=== PATIENT | male | born 1980 | race Two or more races ===

== ENCOUNTER 2023-05-13 04:25 | Inpatient (IN) | payer OTHER ==
[2023-05-13] VITALS (23 sets, daily range): BP systolic 103–151; BP diastolic 49–95
[~2023-05-13] VITALS: Ht 185.4 cm; Wt 119.8 kg
[2023-05-13] MEDS ORDERED: LIDOCAINE 50MG/5ML INJ 5ML SYRINGE IV ONE (04:45)
[2023-05-13] MEDS ORDERED: HEPARIN SODIUM (PORCINE) 5000 UNITS/ML 1ML VIAL IV ONE (04:45)
[2023-05-13] MEDS ORDERED: LIDOCAINE HCL 100 MG/5ML (2%) SYRG INJ IV ONE (04:47)
[2023-05-13 04:56] LABS: Hematocrit 47.9 % (41.0-53.0); Hemoglobin 16.5 g/dL (13.5-17.5); Mean Corpuscular Hemoglobin 30.3 pg (28.0-32.0); Mean Corpuscular Hgb Conc. 34.5 g/dL (32.0-36.0); Mean Corpuscular Volume 87.6 fL (80.0-100.0); Red Blood Cells 5.46 10^6/uL (4.5-5.90); Red Cell Distribution Width 12.8 % (11.8-14.3); White Blood Cell 14.2 10^3/uL (4.4-10.8)
[2023-05-13 05:00] LABS: Basophils % (manual) 0 (0.0-2.0); Blast Cells 0; Eosinophils % (manual) 0 (0-7); Metamyelocytes % 0; Myelocytes % 0; Promyelocytes % 0
[2023-05-13] MEDS ORDERED: ASPirin 81 mg TAB PO ONE (05:00)
[2023-05-13 05:11] LABS: INR 1.07 (0.9-1.15); Partial Thromboplastin Time 25.3 SEC (24.5-34.5)
[2023-05-13] MEDS ORDERED: LIDOCAINE 2%HCL (LOCAL ANESTH.) INJ 20ML MDV ONE (05:13)
[2023-05-13] MEDS ORDERED: MIDAZOLAM HCL 2MG/2ML 2ml VIAL (1mg/ml) ONE (05:13)
[2023-05-13] MEDS ORDERED: VERAPAMIL 2.5MG/ML INJ 2ML VIAL IV ONE (05:13)
[2023-05-13] MEDS ORDERED: fentaNYL CITRATE 100 MCG/2 ML VL ONE (05:13)
[2023-05-13 05:15] LABS: Albumin 3.9 g/dL (3.4-5.0); Calcium 9.1 mg/dL (8.5-10.1); Magnesium 2.2 mg/dL (1.6-2.6)
[2023-05-13 05:18] LABS: BUN/Creatinine Ratio 14.4 (10.0-20.0); Bilirubin, Total 0.7 mg/dL (0.2-1.0); Total Protein 8.5 g/dL (6.4-8.2)
[2023-05-13 05:25] LABS: Potassium 2.8 mmol/L (3.5-5.1)
[2023-05-13] MEDS ORDERED: ANGIOMAX 250 MG VIAL IV ONE ×2 (05:30→05:37)
[2023-05-13] MEDS ORDERED: SODIUM CHL 0.9% 0 ML ONE (05:30)
[2023-05-13 05:31] LABS: Band Neutrophils % (manual) 3; Lymphocytes % (manual) 56 (10.0-50.0); Monocytes % (manual) 6 (0-12); Reactive Lymphocytes 2
[2023-05-13] MEDS ORDERED: IODIXANOL 320MG/ML 100ML BTL IV ONE ×2 (05:35→05:47)
[2023-05-13] MEDS ORDERED: SODIUM CHL 0.9% 50 ML ONE (05:37)
[2023-05-13] MEDS ORDERED: ATROPINE SULF 1 MG/10ml SYR ONE (05:37)
[2023-05-13] MEDS ORDERED: EPTIFIBATIDE INJ (2MG/ML) 10ML VIAL IV ONE (05:45)
[2023-05-13] MEDS ORDERED: METOPROLOL TARTRATE 1MG/1ML-5ML VIAL IV ONE (05:52)
[2023-05-13] MEDS ORDERED: TICAGRELOR 90 MG TAB ONE (05:52)
[2023-05-13] MEDS ORDERED: POTASSIUM CHL 20 Meq TABLET PO ONE (06:15)
[2023-05-13] MEDS ORDERED: MORPHINE SULFATE INJ 2 MG/ml SYRG IV PRN (06:15)
[2023-05-13] MEDS ORDERED: MAGNESIUM SULFATE 1GM/100ML 100 ML IV ONE (06:15)
[2023-05-13] MEDS ORDERED: NITROGLYCERIN 0.4 MG SL TAB SL PRN (06:15)
[2023-05-13] MEDS ORDERED: SPIRONOLACTONE 25 MG TAB PO ONE (06:15)
[2023-05-13] MEDS: TICAGRELOR 90 MG TAB PO SCH ×2 (09:50→21:12)
[2023-05-13] MEDS: ATORVASTATIN 20 MG TAB PO SCH (09:50)
[2023-05-13] MEDS: CARVEDILOL 3.125 MG TAB PO SCH ×2 (09:51→21:12)
[2023-05-13] MEDS: ENALAPRIL MALEATE 2.5 MG TAB PO SCH ×2 (10:00→21:11)
[2023-05-13 13:33] LABS: Calcium 9.3 mg/dL (8.5-10.1); Potassium 4.2 mmol/L (3.5-5.1)
[2023-05-13 13:37] LABS: Magnesium 2.4 mg/dL (1.6-2.6)
[2023-05-13] MEDS ORDERED: ONDANSETRON HCL 4 MG/2 ML VIAL IV PRN (14:00)
[2023-05-13] MEDS ORDERED: KETOROLAC TROMETH 30 MG/ML 1ML VIAL IV ONE (14:00)
[2023-05-13 15:19] LABS: Urine Bacteria NONE SEEN /hpf (None Seen); Urine Blood Negative /uL (Negative); Urine Specific Gravity 1.031 (1.001-1.035); Urine WBC <1 /hpf (0 - 3)
[2023-05-14] VITALS (15 sets, daily range): BP systolic 92–154; BP diastolic 48–78
[2023-05-14 05:07] LABS: Basophils # (auto) 0 10 ^3/uL (0-0.2); Basophils % (auto) 0.1 % (0.0-2.0); Eosinophils # (auto) 0.1 10 ^3/uL (0-0.8); Eosinophils % (auto) 0.9 % (0.0-7.0); Hematocrit 45.4 % (41.0-53.0); Lymphocytes # (auto) 3.8 10 ^3/uL (0.4-5.4); Lymphocytes % (auto) 35.7 % (10.0-50.0); Mean Corpuscular Hemoglobin 30.5 pg (28.0-32.0); Mean Corpuscular Hgb Conc. 35.2 g/dL (32.0-36.0); Mean Corpuscular Volume 86.7 fL (80.0-100.0); Monocytes # (auto) 0.8 10 ^3/uL (0-1.3); Neutrophils # (auto) 5.8 10 ^3/uL (1.6-8.6); Neutrophils % (auto) 55.3 % (37.0-80.0); Red Blood Cells 5.24 10^6/uL (4.5-5.90); Red Cell Distribution Width 12.9 % (11.8-14.3); White Blood Cell 10.5 10^3/uL (4.4-10.8)
[2023-05-14 05:11] LABS: Calcium 8.5 mg/dL (8.5-10.1); Magnesium 2.2 mg/dL (1.6-2.6); Potassium 3.5 mmol/L (3.5-5.1)
[2023-05-14 05:14] LABS: BUN/Creatinine Ratio 13.6 (10.0-20.0)
[2023-05-14] MEDS ORDERED: DEXTROSE (50%) 50ML SYRG IV PRN (10:00)
[2023-05-14] MEDS: ATORVASTATIN 20 MG TAB PO SCH (10:34)
[2023-05-14] MEDS: TICAGRELOR 90 MG TAB PO SCH ×2 (10:35→21:42)
[2023-05-14] MEDS: ENALAPRIL MALEATE 2.5 MG TAB PO SCH ×2 (10:35→21:43)
[2023-05-14] MEDS: CARVEDILOL 3.125 MG TAB PO SCH ×2 (10:35→21:42)
[2023-05-14] MEDS: ASPirin 81 mg TAB PO SCH (10:35)
[2023-05-14] MEDS: ACCU-CHEK COMFORT CURVE STRIP VI SCH ×2 (12:00→17:44)
[2023-05-14] MEDS: InsuLIN REG 1unit/0.01ml Soln (100units/ml) SC SCH ×2 (12:42→18:27)
[2023-05-15] VITALS (7 sets, daily range): BP systolic 116–137; BP diastolic 49–89
[2023-05-15] MEDS: ACCU-CHEK COMFORT CURVE STRIP VI SCH ×5 (00:20→23:02)
[2023-05-15] MEDS: InsuLIN REG 1unit/0.01ml Soln (100units/ml) SC SCH ×5 (00:21→23:02)
[2023-05-15] MEDS: TICAGRELOR 90 MG TAB PO SCH ×2 (09:31→21:23)
[2023-05-15] MEDS: ATORVASTATIN 20 MG TAB PO SCH (09:31)
[2023-05-15] MEDS: ASPirin 81 mg TAB PO SCH (09:31)
[2023-05-15] MEDS: CARVEDILOL 3.125 MG TAB PO SCH ×2 (09:32→21:22)
[2023-05-15] MEDS: ENALAPRIL MALEATE 2.5 MG TAB PO SCH ×2 (09:32→21:23)
[2023-05-15] MEDS ORDERED: INSUINJ37 SC ×2 (12:13)
[2023-05-15] MEDS ORDERED: CAR3125T PO ×2 (12:13)
[2023-05-15] MEDS ORDERED: INSU100I51 SC ×2 (12:13)
[2023-05-15] MEDS ORDERED: CARV3.1240 PO ×2 (12:13)
[2023-05-15] MEDS ORDERED: TICA90TA PO ×2 (12:13)
[2023-05-15] MEDS ORDERED: ENAL5TAB22 PO ×2 (12:13)
[2023-05-15] MEDS ORDERED: ASPI-325 PO ×2 (12:13)
[2023-05-15] MEDS: INSULIN LANTUS (GLARGINE) 1 /0.01ml (100units/ml) SC SCH (23:12)
[2023-05-16 04:54] VITALS: BP 130/76
[2023-05-16] MEDS: ACCU-CHEK COMFORT CURVE STRIP VI SCH ×2 (06:09→12:30)
[2023-05-16] MEDS: INSULIN LANTUS (GLARGINE) 1 /0.01ml (100units/ml) SC SCH (06:10)
[2023-05-16] MEDS: InsuLIN REG 1unit/0.01ml Soln (100units/ml) SC SCH ×2 (06:11→12:33)
[2023-05-16] MEDS: TICAGRELOR 90 MG TAB PO SCH (08:48)
[2023-05-16] MEDS: ASPirin 81 mg TAB PO SCH (08:49)
[2023-05-16] MEDS: ATORVASTATIN 20 MG TAB PO SCH (08:50)
[2023-05-16] MEDS: ENALAPRIL MALEATE 2.5 MG TAB PO SCH (08:50)
[2023-05-16] MEDS: CARVEDILOL 3.125 MG TAB PO SCH (08:51)
[2023-05-16 09:00] VITALS: BP 121/77
[2023-05-16 11:16] VITALS: BP 121/77
[2023-05-16] MEDS ORDERED: INSLANTI SC (11:47)
[2023-05-16] MEDS ORDERED: ASPI1TAB20 PO (11:47)
[2023-05-16] MEDS ORDERED: TICA90TA PO (11:47)
[2023-05-16] MEDS ORDERED: CAR3125T PO (11:47)
[2023-05-16] MEDS ORDERED: ENAL5TAB22 PO (11:47)
[2023-05-16] MEDS ORDERED: ATOR-47 PO (11:47)
[2023-05-16] MEDS ORDERED: INSU100I49 SC (11:47)
[2023-05-16 13:00] VITALS: BP 134/87
== END 2023-05-16 16:03 | disposition home or self-care (01) | DRG 270 ==
LOC: ER 04:25 → TELE 06:11 → DOU IN ICU 07:40 → TELE-WESTW 05-15 12:04
PROVIDERS: ADMIT Internal Medicine; ATTEND Internal Medicine
PROC: 027034Z Dilation of Coronary Artery, One Artery with Drug-eluting Intraluminal Device, Percutaneous Approach (ICD-10-PCS; principal; 2023-05-13)
PROC: X2CY3T7 Extirpation of Matter from Great Vessel using Computer-aided Mechanical Aspiration, Percutaneous Approach, New Technology Group 7 (ICD-10-PCS; 2023-05-13)
PROC: 3E073PZ Introduction of Platelet Inhibitor into Coronary Artery, Percutaneous Approach (ICD-10-PCS; 2023-05-13)
PROC: 4A023N7 Measurement of Cardiac Sampling and Pressure, Left Heart, Percutaneous Approach (ICD-10-PCS; 2023-05-13)
PROC: B211YZZ Fluoroscopy of Multiple Coronary Arteries using Other Contrast (ICD-10-PCS; 2023-05-13)
PROC: B215YZZ Fluoroscopy of Left Heart using Other Contrast (ICD-10-PCS; 2023-05-13)
DX: I21.09 ST elevation (STEMI) myocardial infarction involving other coronary artery of anterior wall (principal); I50.41 Acute combined systolic (congestive) and diastolic (congestive) heart failure; I47.20 Ventricular tachycardia, unspecified; I11.0 Hypertensive heart disease with heart failure; E87.6 Hypokalemia; E66.01 Morbid (severe) obesity due to excess calories; E78.5 Hyperlipidemia, unspecified; I25.10 Atherosclerotic heart disease of native coronary artery without angina pectoris; Z68.34 Body mass index [BMI] 34.0-34.9, adult; Z79.82 Long term (current) use of aspirin; Z79.899 Other long term (current) drug therapy; E11.9 Type 2 diabetes mellitus without complications
CPT/HCPCS: 36415; 37187; 71045; 76942; 80048; 80053; 80061; 81001; 82962; 83036; 83735; 83880; 84484; 85007; 85025; 85027; 85610; 85730; 87081; 92928; 93005; 93306; 93458; 96374; 96375; 99152; 99153; 99291; G0378; J1815; J1885; J2250; Q9967

== ENCOUNTER 2023-05-19 00:31 | Inpatient (IN) | payer OTHER ==
[~2023-05-19] VITALS: Ht 185.4 cm; Wt 125.0 kg
[~2023-05-19 00:31] MED LIST: ASPI1TAB20 PO; ATOR-47 PO; CAR3125T PO; ENAL5TAB22 PO; INSLANTI SC; INSU100I49 SC; TICA90TA PO
[2023-05-19 01:01] LABS: Basophils # (auto) 0.1 10 ^3/uL (0-0.2); Basophils % (auto) 0.5 % (0.0-2.0); Eosinophils # (auto) 0.2 10 ^3/uL (0-0.8); Eosinophils % (auto) 1.7 % (0.0-7.0); Hematocrit 45.7 % (41.0-53.0); Hemoglobin 15.5 g/dL (13.5-17.5); Lymphocytes # (auto) 5.6 10 ^3/uL (0.4-5.4); Mean Corpuscular Hemoglobin 29.8 pg (28.0-32.0); Mean Corpuscular Volume 87.7 fL (80.0-100.0); Monocytes # (auto) 0.9 10 ^3/uL (0-1.3); Monocytes % (auto) 7.7 % (0.0-12.0); Neutrophils # (auto) 4.7 10 ^3/uL (1.6-8.6); Neutrophils % (auto) 41.1 % (37.0-80.0); Nucleated Red Blood Cells % 0.1 %; Red Blood Cells 5.21 10^6/uL (4.5-5.90); Red Cell Distribution Width 12.8 % (11.8-14.3); White Blood Cell 11.4 10^3/uL (4.4-10.8)
[2023-05-19 01:19] LABS: Albumin 4.1 g/dL (3.4-5.0); BUN/Creatinine Ratio 17.2 (10.0-20.0); Calcium 8.6 mg/dL (8.5-10.1); Magnesium 2.4 mg/dL (1.6-2.6); Potassium 3.7 mmol/L (3.5-5.1)
[2023-05-19 01:21] LABS: Bilirubin, Total 0.5 mg/dL (0.2-1.0); Total Protein 8.4 g/dL (6.4-8.2)
[2023-05-19] MEDS ORDERED: ENOXAPARIN SOD 100 MG/1 ML SYRINGE SC ONE (02:15)
[2023-05-19] MEDS ORDERED: ONDANSETRON HCL 4 MG/2 ML VIAL IV PRN (06:00)
[2023-05-19] MEDS ORDERED: DEXTROSE (50%) 50ML SYRG IV PRN (06:00)
[2023-05-19] MEDS ORDERED: MORPHINE SULFATE INJ 2 MG/ml SYRG IV PRN (06:00)
[2023-05-19] MEDS ORDERED: NITROGLYCERIN 0.4 MG SL TAB SL PRN (06:00)
[2023-05-19] MEDS: ACCU-CHEK COMFORT CURVE STRIP VI SCH ×2 (06:39→12:07)
[2023-05-19] MEDS: InsuLIN REG 1unit/0.01ml Soln (100units/ml) SC SCH ×2 (06:45→12:07)
[2023-05-19] MEDS ORDERED: CARVEDILOL 3.125 MG TAB PO SCH (10:00)
[2023-05-19] MEDS ORDERED: PANTOPRAZOLE 40 MG TAB PO SCH (10:00)
[2023-05-19] MEDS ORDERED: TICAGRELOR 90 MG TAB PO SCH (10:00)
[2023-05-19] MEDS ORDERED: ASPirin 81 mg TAB PO SCH (10:00)
[2023-05-19] MEDS ORDERED: ENALAPRIL MALEATE 2.5 MG TAB PO SCH (10:00)
[2023-05-19 14:11] VITALS: BP 121/75
[2023-05-19] MEDS ORDERED: ATORVASTATIN 20 MG TAB PO SCH (22:00)
[2023-05-20] MEDS ORDERED: ASPirin 81 mg TAB PO SCH (10:00)
== END 2023-05-19 14:11 | disposition home or self-care (01) | DRG 281 ==
LOC: ER 00:31 → TELE 05:55
PROVIDERS: ADMIT Internal Medicine; ATTEND Internal Medicine
DX: I21.4 Non-ST elevation (NSTEMI) myocardial infarction (principal); I50.42 Chronic combined systolic (congestive) and diastolic (congestive) heart failure; I11.0 Hypertensive heart disease with heart failure; E11.9 Type 2 diabetes mellitus without complications; E66.9 Obesity, unspecified; E78.5 Hyperlipidemia, unspecified; I25.10 Atherosclerotic heart disease of native coronary artery without angina pectoris; I49.8 Other specified cardiac arrhythmias; R00.2 Palpitations; I25.2 Old myocardial infarction; Z98.61 Coronary angioplasty status; Z82.49 Family history of ischemic heart disease and other diseases of the circulatory system; Z79.4 Long term (current) use of insulin; Z68.36 Body mass index [BMI] 36.0-36.9, adult
CPT/HCPCS: 36415; 80053; 82962; 83735; 84484; 85025; 93005; 96372; G0378; J1815